=== PATIENT | male | born 1980 | race Two or more races ===

== ENCOUNTER 2018-04-09 19:55 | Emergency (ER) | payer OTHER | END 2018-04-09 20:52 | disposition home or self-care (01) | LOC: ER 19:55 | DX: S00.03XA Contusion of scalp, initial encounter (principal); V43.52XA Car driver injured in collision with other type car in traffic accident, initial encounter; Y93.I9 Activity, other involving external motion; Y92.488 Other paved roadways as the place of occurrence of the external cause; Y99.8 Other external cause status | CPT/HCPCS: 99281 ==